=== PATIENT | female | born 1990 | race Caucasian/White ===

== ENCOUNTER 2018-02-28 21:35 | Observation (INO) | payer OTHER ==
[2018-02-28 22:00] VITALS: BP 117/69
--- NOTE | 2018-02-28 23:30 | RADIOLOGY IMAGING REPORT ---
FACILITY: [facility] PATIENT NAME: Brittany Mcdowell : 1990 MR: [id number] V: [id number] EXAM DATE: ORDERING PHYSICIAN: DONA DUQUE TECHNOLOGIST: Location: [facility] - [place] Patient: Brittany Mcdowell : 1990 Visit/Account:[id number] Date of Sevice: 02/28/2018 OB LIMITED HISTORY: Possible rupture of membranes. 17 weeks . COMPARISON STUDIES: None. FINDINGS: Intrauterine gestations: One. presentation: Fetus appears to be in cephalic presentation. heart rate: Regular at 161 bpm. Amniotic fluid index: 3.5 cm. Largest amniotic fluid pocket 1.5 cm. Placenta: Anterior and fundal without previa. Placental cord insertion is normal. Uterus: Gravid, otherwise normal. Maternal adnexa: Unremarkable. Cervix: Not seen due to shadowing from the fetus. Gestational Parameters: BPD: 3.5 cm 16 weeks/ 6 days HC: 12.0 cm 16 weeks/ 0 days AC: 11.0 cm 17 weeks/ 0 days FL: 2.2 cm 16 weeks/ 5 days Average ultrasound age (AUA): 16 weeks 5 days Estimated gestational age by LMP of 10/30/2017: 17 weeks 2 days, corresponding to TAMMIE 08/06/2018. Estimated weight (EFW): 166 grams +/- 25 grams EFW: 14 th percentile based on LMP. Anatomic survey was not performed due to early gestational age. IMPRESSION: 1. Single live intrauterine gestation; estimated ultrasound age 16 weeks 5 days, corresponding to TAMMIE 08/10/2018, 4 days less than the TAMMIE based on LMP. 2. Severe oligohydramnios, compatible with premature rupture of membranes. The amniotic fluid index 3 .5. 3. Placenta is anterior and fundal without previa. A call was placed to DONA DUQUE on 02/28/2018 11:05 PM, but he was with the patient and unable to com e to the phone. A message was left to have him call back if there were any questions regarding the re port. Report Dictated By: Rachelle Davis at 02/28/2018 11:00 PM Report E-Signed By: Rachelle Davis at 02/28/2018 11:26 PM WSN:[id number]
[2018-02-28] MEDS ORDERED: FAMOTIDINE(*) 20MG/50ML PREMIX 50 ML IVPB PRN (23:38)
[2018-02-28] MEDS ORDERED: FLUSH 10 ML SYR IVP PRN (23:40)
[2018-02-28] MEDS ORDERED: fentaNYL CITR 100 MCG/2 ML AMP IVP PRN (23:40)
[2018-02-28] MEDS ORDERED: IBUPROFEN 800 MG TAB PO PRN (23:40)
[2018-02-28] MEDS ORDERED: LIDOCAINE 1% LOCAL 300 MG/30ML INJ PRN (23:40)
[2018-02-28] MEDS ORDERED: APAP/HYDROCODONE 325/5 TAB PO PRN (23:40)
[2018-02-28] MEDS ORDERED: METOCLOPRAMIDE 10 MG/2 ML SDV IVP PRN (23:40)
[2018-02-28] MEDS ORDERED: LIDOCAINE/SOD BICARB 8.4% SYR SC PRN (23:40)
--- NOTE | 2018-03-01 00:10 | History & Physical ---
History of Present Illness Age of Patient: 27 : 1 Para or TPAL: 0 EDC per U/S: Aug 06, 2018 Estimated Gestational Age: 17.2 Chief Complaint Loss of fluid. Vaginal bleeding. History of Present Illness Pt is a 27 y/o @ 17-2/7 weeks gestation by a 9 week sonogram, who presents to [facility] with a chief complaint of vaginal bleeding and a very runny discharge. Pt has received all care at [facility]. She reports that she has been having significant cramping since this last and has an increased discharge. Reports that over the past two days that discharge went from mucus to a watery discharge. Pt reports that today she wore a panty liner and quickly soaked through it and then changed with a heavy pad and soaked it as well. Pt reports that every time she stands she has a nother gush of fluid. Reports that the bleeding has increased significantly over the past few hours. Pt reports that she has got more and more crampy as the day has progressed. History Obstetrical History: Nulligravid Past Medical History: Non contributory Social History: Denies X 3. Review of Systems All Systems Reviewed/Normal: Yes, Except as Noted Constitutional: No Fever, No Weight Loss, No Weight Gain, No Chills, No Night Sweats, No Other Neurological: No Syncope, No Confusion, No Weakness, No Dizziness, No Slurred Speech, No Other Eyes: No Vision Change, No Loss of Vision, No Photophobia, No Other ENT: No Hearing Loss, No Sinus Congestion, No Sore Throat, No Ear Ache, No Tinnitus, No Other Cardiovascular: No Chest Pain, No Palpitations, No Orthostatic Hypotension, No Other Respiratory: No Shortness of Breath, No Cough, No Wheezing, No Other Gastrointestinal: No Nausea, No Vomiting, No Diarrhea, No Dysphagia, No Constipation, No Early Satiety, No Hematemesis, No Hematochezia, No Melena, No Abdominal Pain, No Other Genitourinary: No Dysuria, No Hematuria, No Urinary Incontinence, No Other Musculoskeletal: No Pain, No Sprain, No Strain, No Impaired Mobility, No Other Psychiatric: No Depression, No Anxiety, No Other Exam General Exam General Apperance: Alert/Awake/No Acute Distress Neuro: No Gross deficits Eyes: Normal Extraocular Movement & Vison ENT: Normal Cardiovascular: Regular Rate and Rhythm Respiratory: No Respiratory Distress Abdomen: Soft, Non-Tender, Non-Distended : Normal Musculoskeletal: No Weakness/Pain Extremities: No Cyanosis,Clubbing or Edema Integumentary: Skin Intact without Lesions or Rash Psychological: Alert & Oriented X3, Appropriate Mood & Affect Vaginal Discharge/Fluid?: Bloody Show Cervical Dialation: 0 (Significant bloody show on exam) Presentation: Vertex Fetus Estimated Weight(grams): 166 Heart Tones: 161 (by sonogram) Medical Decision Making Pre-Admit Course Medical Record Review: Yes VTE Prophylasis: Adult Deep Vein Thrombosis/Pulmonary: No Assessment and Plan RN PERIOPERATIVE Plan: Routine Labor/Induct Care Problems: (1) 17 weeks gestation of (2) Premature rupture of membranes Assessment & Plan: Pt is 17 weeks. Amnisure was positive and Ultrasound shows 3 cm of amniotic fluid, + cardiac activity. Discussed options with patient to include observation overnight and possibly longer depending on how things develop. Pt understands that many women with Previable rupture of membranes tend to deliver with in 1 week of rupture. There have been a few studies to discuss the benefit of giving antibiotics to increase latency but that data hasn 't been extrapolated to this Gestational age to prove its effectiveness. I would be willing to start this Antibiotic course if the patient desires ( Amoxicillin 250 mg PO q 8 hours and Erythromycin 333 mg PO q 8 hours) to increase latency. If no change in patient status will consider discharge in the morning or as dictated by symptoms. Discussed doing Ultrasound to confirm the presence of heart activity. Discussed if no heart activity, the possibility of delivery. Pt had a fair amount of spotting/blood show on exam. Because of that I asked the patient to stay overnight at least. If no change offered to have patient see one of the [facility]'s in [place] to discuss all options. Pt understands that the circumstances are difficult and if delivery did happen a 17 week baby would have no ability to ventilate/breath and would pass away. Discussed all options with patients and her parents present. Will get CBC/Type and Screen tonight. IV access. Pain medications and Sleeping medications ordered prn. Problem Qualifiers (1) Premature rupture of membranes: PROM gestational age: -second trimester DONA DUQUE DO Mar 01, 2018 00:10
[2018-03-01 06:56] VITALS: BP 117/65
[2018-03-01 07:49] LABS: PLATELET COUNT, AUTOMATED 276 K/uL (150-450)
--- NOTE | 2018-03-01 11:24 | RADIOLOGY IMAGING REPORT ---
FAC[place] [facility] [place]IENT NAME: Brittany Mcdowell : 1990 MR: [id number] V: [id number] EXAM DATE: ORDERING PHYSICIAN: DONA DUQUE TECHNOLOGIST: Location: [facility] Patient: Brittany Mcdowell : 1990 Visit/Account:[id number] Date of Sevice: 03/01/2018 Exam type: OB LIMITED History: Assess for Heart Tones Comparison: February 28, 2018. Findings: Limited study demonstrates a single fetus in vertex presentation. The heart rate was 149 bpm. Minimal amniotic fluid was present and actually appears decreased when compared to the prior study. IMPRESSION: 1. Limited study demonstrates a single fetus in vertex presentation with heart rate of 149 bpm Very little amniotic fluid is present and is decreased when compared to yesterday's study Report Dictated By: Sherri Valdovinos MD at 03/01/2018 10:54 AM Report E-Signed By: Sherri Valdovinos MD at 03/01/2018 11:21 AM WSN:[id number]
--- NOTE | 2018-03-01 12:52 | OB/GYN Progress Note ---
OB Subjective Progress Notes Subjective Feeling better this morning. Still reports lose of fluid and some blood with the fluid with ambulation. Denies any fevers or cramping this morning. Having difficulty with the current situation. Questions about next step and options available. GI: NEG Nausea, NEG Vomiting, NEG Flatus, NEG Bowel Movement : Voiding Well, Vaginal Bleeding, Scant Pain: Mild, Tolerating PO Pain Meds Neurological: No Headache, No Other Eyes: No Visual Disturbances OB Objective Physical Exam Vital Signs Date Time Temp Pulse Resp B/P (MAP) Pulse Ox O2 Delivery O2 Flow Rate FiO2 03/01/18 06:56 98.1 91 16 117/65 (82) 95 Room Air General Appearance: Alert/Awake/No Acute Distress Neurological: No Gross deficits Eyes: Normal Extraocular Movement & Vison Respiratory: No Respiratory Distress Abdomen: Soft, Non-Tender, Non-Distended Extremities: No Cyanosis,Clubbing or Edema Integumentary: Skin Intact without Lesions or Rash Psychological: Alert & Oriented X3, Appropriate Mood & Affect Result Diagram: 03/01/18 0737 Imaging Exam type: OB LIMITED History: Assess for Heart Tones Comparison: February 28, 2018. Findings: Limited study demonstrates a single fetus in vertex presentation. The heart rate was 149 bpm. Minimal amniotic fluid was present and actually appears decreased when compared to the prior study. IMPRESSION: 1. 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 Will discuss with [facility] plan for managing patient either in or outpatient. Once [facility] meeting has happened will have a conversation with the patient to see what she feels about in vs out patient management. Problem Qualifiers (1) Premature rupture of membranes: PROM gestational age: -second trimester ELIDIA DUQUEAshley HILL Mar 01, 2018 12:52
--- NOTE | 2018-03-01 14:02 | OB/GYN Progress Note ---
OB Subjective Progress Notes Subjective Doing better now. Desires to be discharged home if possible. GI: NEG Nausea, NEG Vomiting, NEG Flatus, NEG Bowel Movement : Voiding Well, Vaginal Bleeding, Scant Pain: Mild Neurological: No Headache, No Other Eyes: No Visual Disturbances OB Objective Physical Exam Vital Signs Date Time Temp Pulse Resp B/P (MAP) Pulse Ox O2 Delivery O2 Flow Rate FiO2 03/01/18 06:56 98.1 91 16 117/65 (82) 95 Room Air General Appearance: Alert/Awake/No Acute Distress Neurological: No Gross deficits Eyes: Normal Extraocular Movement & Vison ENT: Normal Neck: No Masses Cardiovascular: Normal Rhythm & Peripheral Pulses Respiratory: No Respiratory Distress Abdomen: Soft, Non-Tender, Non-Distended Extremities: No Cyanosis,Clubbing or Edema Integumentary: Skin Intact without Lesions or Rash Psychological: Alert & Oriented X3, Appropriate Mood & Affect Result Diagram: 03/01/18 0737 Assessment and Plan Problems: (1) 17 weeks gestation of (2) Premature rupture of membranes Assessment & Plan: Pt care discussed with [facility]. They agree with expectant management at this point. If patient desires consultation prior to 24 weeks we can easily schedule that appointment. Weekly heart checks. Daily maternal at home temperature checks. Chorio precautions. Bleeding precautions. This was discussed with the patient and her . Problem Qualifiers (1) Premature rupture of membranes: PROM gestational age: -second trimester DUNIAELIDIAAshley HILL Mar 01, 2018 14:02
--- NOTE | 2018-03-01 14:06 | OB/GYN Discharge Summary ---
Discharge Summary Reason for Hosp/Final Diag: (1) 17 weeks gestation of (2) Premature rupture of membranes Status: Acute Hospital Course & Plan: Pt presented with a complaint of loss of amniotic fluid. She was noted to be grossly ruptured and positive amnisure. Underwent Ultrasound that shows + cardiac activity. Oligohydramnios. Pt was monitored overnight for any signs of labor or any signs of infections. After watching expectantly the decision was made to discharge the patient home with strong chorioamnionitis, bleeding, and labor precautions. Pt to follow up weekly for heart monitoring. Daily maternal at home temperature. If patient desires we can arrange follow up with [facility]. They recommend follow up if still by 24 weeks gestation. Lates Vital Signs Vital Signs Date Time Temp Pulse Resp B/P (MAP) Pulse Ox O2 Delivery O2 Flow Rate FiO2 03/01/18 06:56 98.1 91 16 117/65 (82) 95 Room Air Result Diagram: 03/01/18 0737 Condition: No Change Discharge: Home Home Meds No Active Prescriptions or Reported Meds [phone] Follow up in: 5-7 days Discharge Diet: As Tolerates, Increase Fluid Intake Discharge Activity: As Tolerates, Pelvic Rest Problem Qualifiers (1) Premature rupture of membranes: PROM gestational age: -second trimester DONA DUQUE DO Mar 01, 2018 14:05
[2018-03-01] MEDS ORDERED: ZOLPIDEM TARTRATE 5 MG TAB PO SCH (21:00)
== END 2018-03-01 13:48 | disposition home or self-care (01) ==
LOC: OB 21:35 → INTOOBSV 21:35
PROVIDERS: ADMIT Student in an Organized Health Care Education/Training Program; ATTEND Student in an Organized Health Care Education/Training Program
DX: O42.912 Preterm premature rupture of membranes, unspecified as to length of time between rupture and onset of labor, second trimester (principal); Z3A.17 17 weeks gestation of pregnancy
CPT/HCPCS: 36415; 76815; 84112; 85025; 86850; 86900; 86901; G0378; G0379

== ENCOUNTER → 2018-03-08 | Outpatient (CLI) | payer OTHER | LOC: RAD 08:18 | PROVIDERS: ATTEND Obstetrics & Gynecology | DX: Z02.9 Encounter for administrative examinations, unspecified (principal) ==

== ENCOUNTER 2018-03-13 23:16 | Observation (INO) | payer OTHER ==
[2018-03-13] MEDS ORDERED: PREN-127 PO (23:30)
[2018-03-13] MEDS ORDERED: FLUSH 10 ML SYR IVP PRN (23:35)
[2018-03-14] VITALS: BP 121/72
[2018-03-14] MEDS: fentaNYL CITR 100 MCG/2 ML AMP IVP PRN ×2 (00:08→01:39)
[2018-03-14 00:19] LABS: PLATELET COUNT, AUTOMATED 235 K/uL (150-450)
--- NOTE | 2018-03-14 00:49 | RADIOLOGY IMAGING REPORT ---
FACILITY: [facility] PATIENT NAME: Brittany Mcdowell : 1990 MR: [id number] V: [id number] EXAM DATE: ORDERING PHYSICIAN: SHIVAM SERRANO TECHNOLOGIST: [place] [facility] [place]: Brittany Mcdowell : 1990 Visit/Account:[id number] Date of Sevice: 03/13/2018 EXAMINATION: LIMITED OB ULTRASOUND DATE: 03/13/2018 11:32 PM. INDICATION: Assess viability. COMPARISON: 03/01/2018. TECHNIQUE: Grayscale, color Doppler and M-mode ultrasound images of the fetus and maternal organs wer e obtained. FINDINGS: anatomic survey and biometry were not performed. heart rate is 161 BPM. No appreciable amniotic fluid. Fundal placenta. IMPRESSION:Single intrauterine gestation with heart rate of 161 BPM and no appreciable amniotic fluid. Report Dictated By: Fabio Massey MD at 03/14/2018 12:41 AM Report E-Signed By: Fabio Massey MD at 03/14/2018 12:45 AM WSN:[id number]
[2018-03-14] MEDS ORDERED: cefOXitin/DEX(*) 2GM/50ML PREM 50 ML IVPB ONE (01:25)
[2018-03-14] MEDS ORDERED: LR(*) 1000 ML BAG 1,000 ML ONE (01:25)
[2018-03-14] MEDS ORDERED: MISOPROSTOL 100 MCG TAB PR ONE (01:25)
[2018-03-14] MEDS ORDERED: MISOPROSTOL 200 MCG TAB PO ONE (01:25)
[2018-03-14] MEDS ORDERED: MISOPROSTOL 200 MCG TAB PR ONE (01:25)
[2018-03-14] MEDS ORDERED: OXYTOCIN 30 UNIT/D5LR 500 ML 0 ML ONE (01:26)
[2018-03-14] MEDS ORDERED: DLR(*) 1000 ML BAG 1,000 ML IV SCH (01:29)
[2018-03-14] MEDS ORDERED: MISOPROSTOL 200 MCG TAB ONE ×2 (01:40→07:29)
--- NOTE | 2018-03-14 02:02 | History & Physical ---
History of Present Illness Age of Patient: 27 : 1 Para or TPAL: 0 EDC per LMP: Aug 06, 2018 Estimated Gestational Age: 19.2 Chief Complaint Cramps History of Present Illness Pt is at 19.2 weeks gestation with known pre-viable PPROM 2 weeks ago. She has been followed as outpt monitoring for signs/symptoms of infection and viability. As of Thursday, FHTs were positive. She has a scheduled a consult with [facility] for further options and discussion of plan. Her called nikki stating she was nauseated and cramping a lot, more than she had before. She had not had any recent bleeding. I asked them to present for further evaluation on the unit. History Patient's Blood Type: O Positive Past Medical History: non-contributory Allergies: Coded Allergies: No Known Drug Allergies (Unverified , 03/01/18) Social History: Denies X 3. Med Rec Home Meds Reported Medications Vits W-Ca,Fe,Fa(<1MG) ( VITAMINS) 1 Each Tablet, 1 EACH PO DAILY, TAB 03/13/18 Review of Systems All Systems Reviewed/Normal: Yes, Except as Noted Gastrointestinal: Nausea, No Diarrhea, Abdominal Pain (cramping) Exam General Exam Vital Signs Vital Signs Date Time Temp Pulse Resp B/P (MAP) Pulse Ox O2 Delivery O2 Flow Rate FiO2 03/14/18 00:00 97.7 91 18 121/72 (88) 95 Room Air General Apperance: Other (tearful) Neuro: No Gross deficits Cardiovascular: Regular Rate and Rhythm Respiratory: No Respiratory Distress Abdomen: Gravid - Non-Tender Psychological: Alert & Oriented X3, Appropriate Mood & Affect Cervical Dialation: 3.5 Medical Decision Making Data Points Result Diagram: 03/14/18 0004 Imaging Ultrasound/Imaging Limited OB u/s for viability confirms positive FHTs VTE Prophylasis: Adult Deep Vein Thrombosis/Pulmonary: No Pharmacological Contraindicati: Pt at Low Risk for VTE Mechanical Contraindications: Pt at Low Risk for VTE Assessment and Plan Problems: (1) 19 weeks gestation of (2) premature rupture of membranes (3) Inevitable Assessment & Plan: Shortly after being notified of the u/s showing positive FHTs, pt felt pressure and need for a bowel movement. She was allowed up to the bathroom and passed the fetus as I was presenting to her room. She was helped back to bed and vaginal exam was performed. The cord was present in the vagina and exam up to the cervix did not reveal the placenta. Exam was very painful for pt. Options for pain control were discussed including regional anesthesia. She prefers IV narcotics. Discussed management at this point will center on Cytotec to assist with spontaneous delivery of the placenta. Will monitor bleeding in the interim. If concern for retained placenta and bleeding become significant, will revise plan then to include manual removal and/or curettage. Mefoxin to cover infection risk as WBC has been elevated. Problem Qualifiers (1) premature rupture of membranes: PROM onset of labor timing: onset of labor more than 24 hours following rupture Qualified Codes: O42.119 - premature rupture of membranes, onset of labor more than 24 hours following rupture, unspecified trimester SHIVAM SERRANO MD Mar 14, 2018 02:02
[2018-03-14] MEDS: MISOPROSTOL 200 MCG TAB BU SCH ×2 (04:21→07:33)
[2018-03-14 07:20] VITALS: BP 107/61
[2018-03-14 07:31] LABS: PLATELET COUNT, AUTOMATED 253 K/uL (150-450)
[2018-03-14] MEDS ORDERED: MISOPROSTOL 200 MCG TAB BU SCH (09:00)
--- NOTE | 2018-03-14 09:39 | RADIOLOGY IMAGING REPORT ---
[place] [facility] [place]: Brittany Mcdowell : 1990 MR: [id number] V: [id number] EXAM DATE: ORDERING PHYSICIAN: SHIVAM SERRANO TECHNOLOGIST: Location: [facility] [place] Patient: Brittany Mcdowell : 1990 Visit/Account:[id number] Date of Sevice: 03/14/2018 PELVIC LTD OR F/U HISTORY: verify all products are delivered EXAMINATION: Transabdominal and transvaginal pelvic ultrasound with duplex Doppler evaluation. COMPARISON: None. FINDINGS: Uterus: uterus measuring 12 x 6.7 x 9.0 cm Myometrium: negative Endometrium: Endometrium thickened up to 2.3 cm. Greater than 10 mm is considered abnormal. One image of duplex Doppler demonstrates some perceived vascularity that may have just been motion artifact. N o mixed high velocity color-flow identified Cervix: negative Ovaries: Not visualized Adnexa: negative Free pelvic fluid: none IMPRESSION: 1. Increased endometrial thickening. This could just represent residual blood but retained products o f conception not excluded. Report Dictated By: Mendoza Gaines MD at 03/14/2018 8:53 AM Report E-Signed By: Mendoza Gaines MD at 03/14/2018 9:36 AM WSN:[id number]
--- NOTE | 2018-03-14 10:16 | OB/GYN Progress Note ---
OB Subjective Progress Notes Subjective Passed placenta earlier this AM by nursing report and bleeding has been light since. Placenta inspected and intact and whole. U/S done showed slightly thickened EMS at >2 cm but no vascularity and c/w clots. Pt feeling well currently. 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 Last dose of Cytotec at 0700. Will discharge home today with precautions and instructions to return for f/u no later than 2 weeks. Precautions against heavy bleeding or fever or foul smelling discharge. Call if concerns. Advised would be good planning to continue with consult with [facility] for planning next attempt. Work release x 1 week. Motrin or Tylenol for pain. Problem Qualifiers (1) premature rupture of membranes: PROM onset of labor timing: onset of labor more than 24 hours following rupture Qualified Codes: O42.119 - premature rupture of membranes, onset of labor more than 24 hours following rupture, unspecified trimester SHIVAM SERRANO MD Mar 14, 2018 10:16
--- NOTE | 2018-03-14 10:41 | OB/GYN Discharge Summary ---
Discharge Summary Reason for Hosp/Final Diag: (1) 19 weeks gestation of (2) premature rupture of membranes (3) Inevitable Hospital Course & Plan: Pt presented with cramps and proceeded to have a spontaneous . Uncomplicated in its course and resolution. Stable bleeding following. (4) Spontaneous in second trimester Hospital Course & Plan: Completed spontaneous and stable currently. Last dose of Cytotec at 0700. Will discharge home today with precautions and instructions to return for f/u no later than 2 weeks. Precautions against heavy bleeding or fever or foul smelling discharge. Call if concerns. Advised would be good planning to continue with consult with [facility] for planning next attempt. Work release x 1 week. Motrin or Tylenol for pain. Lates Vital Signs Vital Signs Date Time Temp Pulse Resp B/P (MAP) Pulse Ox O2 Delivery O2 Flow Rate FiO2 03/14/18 07:20 98.5 78 16 107/61 (76) 93 Room Air Result Diagram: 03/14/18 0700 Imaging FACILITY: [facility] - [place] PATIENT NAME: Brittany Mcdowell : 1990 MR: [id number] V: [id number] EXAM DATE: ORDERING PHYSICIAN: SHIVAM SERRANO TECHNOLOGIST: Location: [facility] Patient: Brittany Mcdowell : 1990 Visit/Account:[id number] Date of Sevice: 03/14/2018 PELVIC LTD OR F/U HISTORY: verify all products are delivered EXAMINATION: Transabdominal and transvaginal pelvic ultrasound with duplex Doppler evaluation. COMPARISON: None. FINDINGS: Uterus: uterus measuring 12 x 6.7 x 9.0 cm Myometrium: negative Endometrium: Endometrium thickened up to 2.3 cm. Greater than 10 mm is considered abnormal. One image of duplex Doppler demonstrates some perceived vascularity that may have just been motion artifact. No mixed high velocity color-flow identified Cervix: negative Ovaries: Not visualized Adnexa: negative Free pelvic fluid: none IMPRESSION: 1. Increased endometrial thickening. This could just represent residual blood but retained products of conception not excluded. Report Dictated By: Mendoza Gaines MD at 03/14/2018 8:53 AM Report E-Signed By: Mendoza Gaines MD at 03/14/2018 9:36 AM WSN:[id number] Condition: Improved Discharge: Home, Self Residential Meds Reported Medications Vits W-Ca,Fe,Fa(<1MG) ( VITAMINS) 1 Each Tablet, 1 EACH PO DAILY, TAB 03/13/18 Follow up Referrals: [facility] - In Two Weeks @ [facility] with Jolly Cho Md Discharge Diet: As Tolerates Discharge Activity: As Tolerates, No Heavy Lifting x 6 wks, Pelvic Rest (x4 weeks) Copies to: SHIVAM SERRANO MD; JOLLY CHO MD Problem Qualifiers (1) premature rupture of membranes: PROM onset of labor timing: onset of labor more than 24 hours following rupture Qualified Codes: O42.119 - premature rupture of membranes, onset of labor more than 24 hours following rupture, unspecified trimester SHIVAM SERRANO MD Mar 14, 2018 10:41
== END 2018-03-14 10:17 | disposition home or self-care (01) ==
LOC: OB 23:16
PROVIDERS: ADMIT Obstetrics & Gynecology; ATTEND Obstetrics & Gynecology
DX: O41.1220 Chorioamnionitis, second trimester, not applicable or unspecified (principal); O03.9 Complete or unspecified spontaneous abortion without complication; Z3A.19 19 weeks gestation of pregnancy
CPT/HCPCS: 36415; 76815; 76857; 85025; 86850; 86900; 86901; 88307; G0378; G0379; J0694; J3010; J7120

== ENCOUNTER → 2018-11-12 | Outpatient (CLI) | payer OTHER ==
[~2018-11-12] MED LIST: DOXY-229 PO; PREN-127 PO
[2018-11-12 10:33] LABS: PLATELET COUNT, AUTOMATED 347 K/uL (150-450)
== END ==
LOC: LAB 09:17
PROVIDERS: ATTEND Obstetrics & Gynecology
DX: Z34.91 Encounter for supervision of normal pregnancy, unspecified, first trimester (principal)
CPT/HCPCS: 36415; 81001; 85025; 86592; 86703; 86762; 86850; 86900; 86901; 87088; 87340

== ENCOUNTER → 2018-11-19 | Outpatient (CLI) | payer OTHER | LOC: LAB 14:35 | PROVIDERS: ATTEND Obstetrics & Gynecology | DX: O09.91 Supervision of high risk pregnancy, unspecified, first trimester (principal) | CPT/HCPCS: 87491; 87591 ==

== ENCOUNTER → 2018-11-25 | Outpatient (CLI) | payer OTHER | LOC: RAD 11:40 | PROVIDERS: ATTEND Obstetrics & Gynecology | DX: Z02.9 Encounter for administrative examinations, unspecified (principal) ==

== ENCOUNTER → 2019-01-06 | Outpatient (CLI) | payer OTHER ==
[~2019-01-06] MED LIST changes: +PROG200C16 PV
--- NOTE | 2019-01-06 13:13 | RADIOLOGY IMAGING REPORT ---
FACILITY: [facility] - [place] PATIENT NAME: Brittany Mcdowell : 1990 MR: [id number] V: [id number] EXAM DATE: ORDERING PHYSICIAN: GREGG REAVES TECHNOLOGIST: Location: [facility] Patient: Brittany Mcdowell : 1990 Visit/Account:[id number] Date of Sevice: 01/06/2019 Exam type: [facility] OB TRANSVAGINAL History: cervical length Comparison: None. Findings: There is a single fetus in variable presentation. The placenta is right lateral. heart rate 149 bpm Estimated gestational age by LMP is 16 weeks and two days The cervix is closed with a cervical length of 5.23 cm IMPRESSION: 1. The cervix is closed with the cervical length of 5.23 cm Report Dictated By: Sherri Valdovinos MD at 01/06/2019 1:03 PM Report E-Signed By: Sherri Valdovinos MD at 01/06/2019 1:09 PM WSN:[email or web address]
== END ==
LOC: RAD 08:10
PROVIDERS: ATTEND Obstetrics & Gynecology
DX: Z02.9 Encounter for administrative examinations, unspecified (principal)

== ENCOUNTER → 2019-01-20 | Outpatient (CLI) | payer OTHER ==
--- NOTE | 2019-01-20 11:40 | RADIOLOGY IMAGING REPORT ---
FACILITY: [facility] PATIENT NAME: Brittany Mcdowell : 1990 MR: [id number] V: [id number] EXAM DATE: ORDERING PHYSICIAN: GREGG REAVES TECHNOLOGIST: Location: Patient: Brittany Mcdowell : 1990 Visit/Account:[id number] Date of Sevice: 01/20/2019 Exam type: US [facility] OB TRANSVAGINAL History: Cervical length, hx of PPROM Comparison: January 06, 2019. Findings: The shortest cervical length is 4.31 cm. Measurements of the cervix were obtained ranging between 4. 31 cm and 4.75 cm. The internal cervical os appears closed. . Gestational age by LMP is 18 weeks and two days IMPRESSION: 1. The shortest cervical length is 4.31 cm Report Dictated By: Sherri Valdovinos MD at 01/20/2019 11:22 AM Report E-Signed By: Sherri Valdovinos MD at 01/20/2019 11:36 AM WSN:[email or web address]
== END ==
LOC: US 07:59
PROVIDERS: ATTEND Obstetrics & Gynecology
DX: Z02.9 Encounter for administrative examinations, unspecified (principal)

== ENCOUNTER → 2019-01-31 | Outpatient (CLI) | payer OTHER ==
--- NOTE | 2019-01-31 13:26 | RADIOLOGY IMAGING REPORT ---
FACILITY: [facility] - [place] PATIENT NAME: Brittany Mcdowell : 1990 MR: [id number] V: [id number] EXAM DATE: ORDERING PHYSICIAN: GREGG REVAES TECHNOLOGIST: Location: [facility] - [place] Patient: Brittany Mcdowell : 1990 Visit/Account:[id number] Date of Sevice: 01/31/2019 Obstetrical ultrasound, greater than 14 weeks. HISTORY: Anatomical survey, history of premature rupture of the membranes, 19 weeks six days by dates . COMPARISON: Cervical ultrasound 01/20/2019. Number of living intrauterine fetuses: One. position: Variable. Amniotic fluid volume: Normal. FELY: 15.2 cm. heart rate: 160 bpm. Placenta: Anterior, grade 0. Placenta previa: No. Distance from os to edge placenta: Not measured. BPD: 4.8 cm, 20 weeks four days, 76th percentile. Head circumference: 18.1 cm, 20 weeks four days, 72nd percentile. Abdominal circumference: 14.7 cm, 20 weeks zero days, 49th percentile. Femur length: 3.1 cm, 19 weeks four days, 30th percentile. Average age by ultrasound: 20 weeks two days. Estimated Weight: 318 g. Cervical length: 3.9 cm. Estimated due date by first trimester ultrasound: 06/18/2019. The brain, face, four chamber heart, stomach, kidneys, ventricular outflow tracts, three vessel cord, cord insertion, placental cord insertion, bladder, cervical spine, thoracic spine, lumba r spine, sacrum, and extremities are unremarkable. The maternal cervix is closed. The maternal ovaries and pelvic vessels are not well visualized. IMPRESSION: Single live intrauterine fetus, 20 weeks two days by ultrasound criteria with appropriate size for da jessica. Negative anatomical survey. The cervix is closed measuring 3.9 cm in length. Report Dictated By: Jeffrey Dewitt MD at 01/31/2019 1:16 PM Report E-Signed By: Jeffrey Dewitt MD at 01/31/2019 1:22 PM WSN:[email or web address]
== END ==
LOC: RAD 08:01
PROVIDERS: ATTEND Obstetrics & Gynecology
DX: Z02.9 Encounter for administrative examinations, unspecified (principal)

== ENCOUNTER → 2019-02-17 | Outpatient (CLI) | payer OTHER ==
--- NOTE | 2019-02-17 14:02 | RADIOLOGY IMAGING REPORT ---
FACILITY: [facility] PATIENT NAME: Brittany Mcdowell : 1990 MR: [id number] V: [id number] EXAM DATE: ORDERING PHYSICIAN: GREGG REAVES TECHNOLOGIST: Location: [facility] - [place] Patient: Brittany Mcdowell : 1990 Visit/Account:[id number] Date of Sevice: 02/17/2019 Exam type: US [facility] OB TRANSVAGINAL History: Cervical Length - Hx of PPROM Comparison: January 31, 2019. Findings: There is a single fetus in breech presentation heart rate 146 bpm The shortest cervical length measured was 4.14 cm. There is no funneling. No evidence of a placenta previa or vasa previa. IMPRESSION: 1. Single viable fetus in breech presentation. The shortest cervical length measures 4.14 cm with no evidence of funneling, placenta previa or vasa previa Report Dictated By: Sherri Valdovinos MD at 02/17/2019 1:55 PM Report E-Signed By: Sherri Valdovinos MD at 02/17/2019 1:57 PM WSN:[email or web address]
== END ==
LOC: US 07:47
PROVIDERS: ATTEND Obstetrics & Gynecology
DX: Z02.9 Encounter for administrative examinations, unspecified (principal)

== ENCOUNTER → 2019-04-08 | Outpatient (CLI) | payer OTHER ==
[~2019-04-08] MED LIST changes: +DIPH0.5S2 IM
[2019-04-08 12:30] LABS: PLATELET COUNT, AUTOMATED 273 K/uL (150-450)
== END ==
LOC: LAB 11:22
PROVIDERS: ATTEND Advanced Practice Midwife
DX: O09.93 Supervision of high risk pregnancy, unspecified, third trimester (principal)
CPT/HCPCS: 36415; 82950; 85025